=== PATIENT | male | born 1970 | race Caucasian/White ===

== ENCOUNTER 2017-02-01 08:04 | Day surgery (SDC) | payer MEDICARE, OTHER ==
[~2017-02-01] VITALS: Ht 182.9 cm; Wt 135.9 kg
[2017-02-01 08:54] VITALS: Ht 182.9 cm; Wt 135.9 kg
[2017-02-01 09:12] VITALS: BP 178/79; PULSE 88
[2017-02-01] MEDS ORDERED: MIDAZOLAM 1 MG/ML 2 ML INJ ONE (09:23)
[2017-02-01] MEDS ORDERED: PROPOFOL 40 ML ONE (09:23)
[2017-02-01] MEDS ORDERED: FENTAnyl 50 MCG/ML VIAL ONE (09:24)
--- NOTE | 2017-02-01 10:13 | GILP ---
DATE OF PROCEDURE: 02/01/2017 NAME OF PROCEDURES: Colonoscopy and biopsy. SURGEON: Vilma Gee MD PREOPERATIVE DIAGNOSES: 1. Change in bowel habit. 2. Rectal bleeding. POSTOPERATIVE DIAGNOSES 1. Colonoscopy all the way to the cecum. 2. Small sigmoid colon polyp was removed using the biopsy forceps. 3. Internal hemorrhoids. INDICATION FOR THE PROCEDURE: The patient is a 47-year-old male patient who noticed a change in the bowel habit and rectal bleeding. The patient was scheduled for colonoscopy for further evaluation. The procedure and possible complications are well explained to the patient, he understood and consen ameya to the procedure. DESCRIPTION OF PROCEDURE: Under the influence of anesthesia, the colonoscope was carefully introduc ed in the rectum and under direct vision, it was advanced all the way to the cecum. FINDINGS: The patient had a small polyp in the sigmoid colon and it was removed using the biopsy fo rceps. He was noted to have internal hemorrhoids. He tolerated the procedure very well and there was no complication from the procedure. At the end o f the procedure, he was awake with stable vital signs and he was discharged home to the care of his family. IMPRESSION: 1. Colonoscopy all the way to the cecum. 2. Small sigmoid colon polyp was removed using the biopsy forceps. 3. Internal hemorrhoids. PLAN: Next screening colonoscopy in 5 years. Dictated By: VILMA HOLGUIN/MANUELITO Conf#: [id number] DID#: [id number]
[2017-02-01 10:17] VITALS: BP 133/60; PULSE 70; RESP 19
--- NOTE | 2017-02-02 10:44 | CONS ---
DATE OF ADMISSION: 02/01/2017 DATE OF CONSULTATION: TYPE OF CONSULTATION: Preoperative gastroenterology. I thank you very much for this kind referral. HISTORY OF PRESENT ILLNESS: Mr. Atif Orozco is a 47-year-old male patient who has been referre d to me for further evaluation of change in the bowel habit associated with constipation. The patie nt also complains of lower abdominal pain and rectal bleeding. There is no past history of colon ne oplasm or inflammatory bowel disease. The patient never had screening colonoscopy. His appetite vega s been good and he is not losing any weight. He does not have any upper abdominal pain, nausea, or vomiting. There is no history of peptic ulcer disease. He is not taking any nonsteroidal anti-infl ammatory agents. There is no history of gallstones. He does not have any fever, chills, or jaundic e. There is no history of liver disease. He has history of hypertension. No history of diabetes. He does not have any heart disease or lung problem. There is no history of kidney disease. He is status post surgery on cervical spine. SOCIAL HISTORY: He is a smoker. He has history of alcohol abuse in the past. Now he states that h e has stopped drinking. FAMILY HISTORY: There is no family history of gastrointestinal tract neoplasm. ALLERGIES: THERE IS NO HISTORY OF SIGNIFICANT DRUG ALLERGY. MEDICATIONS: None. PHYSICAL EXAMINATION: VITAL SIGNS: He is 5 feet 11 inches tall and he weighs 300 pounds. BMI is 42. His blood pressure is 140/87. HEART: Examination of the heart reveals normal first and second heart sounds. LUNGS: Clear. ABDOMEN: Soft without any distention. Liver and spleen are not palpable. There are no masses. Th ere is no focal tenderness. Normal bowel sounds are heard. CENTRAL NERVOUS SYSTEM: Does not reveal any focal neurological deficit. IMPRESSION: 1. Change in the bowel habit. 2. Lower abdominal pain. 3. History of rectal bleeding. 4. The patient never had screening colonoscopy. 5. History of hypertension. 6. Status post cervical spine surgery. 7. History of alcohol abuse. 8. The patient is a smoker. 9. Obesity. PLAN: 1. MiraLax 17 grams dissolved in a glass of water p.o. daily. 2. Rectal examination deferred per the patient's request. It will be done at the time of colonosco py. 3. Colonoscopy for further evaluation. 4. Because of the obesity with a short thick neck, he needs monitored anesthesia care for the proce dure. 5. The patient was strongly advised to stop smoking. 6. The patient was strongly advised to lose weight and to have a dietary consultation and follow up with the primary MD for the management of elevated BMI. 7. The patient was also advised to be followed up with the primary doctor for the management of hyp ertension. The procedure and possible complications are well explained to the patient. He understands and cons ents to the procedure. I thank you once again. Dictated By: VILMA HAIR MD GD/MANUELITO Conf#: [id number] DID#: [id number] CC: VILMA HAIR MD;*End*
== END 2017-02-01 11:54 | disposition home or self-care (01) ==
LOC: GIL 08:04
PROVIDERS: ATTEND Internal Medicine Gastroenterology
DX: D12.5 Benign neoplasm of sigmoid colon (principal); K64.8 Other hemorrhoids; F17.200 Nicotine dependence, unspecified, uncomplicated
CPT/HCPCS: 45380; 88305; J2250; J3010